=== PATIENT | female | born 1940 | race Caucasian/White ===

== ENCOUNTER 2017-05-04 09:47 | Inpatient (IN) | payer OTHER ==
[~2017-05-04] VITALS: Ht 154.9 cm; Wt 60.8 kg
[~2017-05-04 09:47] MED LIST: ACTOS15 MG PO; ALENDRONATE SOD70 MG PO; AMARYL4 MG PO; CIPRO750 MG PO; DAILY VITAMIN1 EAC8 PO; HYDROCHLOROTHIA25 MG PO; JANUMET 50/11 TABLET PO; LISINOPRIL40 MG PO; PROTONIX40 MG PO; SIMVASTATIN40 MG PO; SYNTHROID75 MCG PO; ZOCOR80 MG PO
[2017-05-04 11:19] LABS: POINT-OF-CARE METER ID UU14100415
[2017-05-04 11:26] LABS: BASOPHIL COUNT 0.1 K/uL (0-0.1); EOSINOPHIL (%) 0.2 % (0-5); HEMATOCRIT 47.2 % (36.0-46.0); IMMATURE GRANULOCYTE (%) 0.4 % (0.0-0.7); IMMATURE GRANULOCYTE COUNT 0.1 K/uL; INSTRUMENT ABS NEUTROPHIL CT 10.6 K/uL; LYMPHOCYTE COUNT 1.8 K/uL (1.0-2.8); MCHC 33.1 G/DL (30.0-36.0); MCV 90.8 FL (83-99); MEAN PLAT.VOLUME 10.8 uM^3 (9.5-12.4); MONOCYTE (%) 6.7 % (3-12); MONOCYTE COUNT 0.9 K/uL (0-0.8); NEUTROPHIL (%) 78.7 % (45-76); NEUTROPHIL COUNT 10.6 K/uL (1.8-6.4); PLATELET COUNT 273 K/uL (156-360); RBC DIS.WIDTH-CV 13.3 % (11.8-14.6); RBC DIS.WIDTH-SD 44.2 % (39-53); WHITE BLOOD COUNT 13.5 K/uL (4.1-10.2)
[2017-05-04 11:40] LABS: CHLORIDE 114 mEq/L (99-109); POTASSIUM 4.1 mEq/L (3.7-5.4); SODIUM 151 mEq/L (136-147)
[2017-05-04 11:42] LABS: GLUCOSE 363 mg/dL (70-99)
[2017-05-04 11:43] LABS: ANION GAP 15 MEQ/L (2-14)
[2017-05-04 11:46] LABS: GFR ESTIMATE (CALCULATED) 51 mL/min/; UREA NITROGEN (BUN) 48 mg/dL (9-23)
[2017-05-04 11:48] LABS: CREATINE KINASE 815 IU/L (1-294)
[2017-05-04 11:51] LABS: ADD MIUA? YES; BILIRUBIN NEGATIVE; BLOOD SMALL; COLOR YELLOW ((YELLOW)); GLUCOSE (STRIP) >=500; KETONES 20; LEUKOCYTES NEGATIVE; NITRITE NEGATIVE; PROTEIN (STRIP) 100; SPECIFIC GRAVITY 1.032 (1.000-1.030)
[2017-05-04 11:54] LABS: TROP-I INTERPRETATION NEGATIVE; TROPONIN-I < 0.01 ng/mL (0.0-0.30)
[2017-05-04 12:09] LABS: BACTERIA 1+ /HPF; EPITHELIAL CELLS RARE /HPF; MUCUS 4+ /LPF; RED BLOOD CELLS 0-5 /HPF (0-5)
[2017-05-04] MEDS ORDERED: ATORVASTATIN CA40 MG PO (12:47)
[2017-05-04 13:19] LABS: POINT-OF-CARE METER ID UU14100415
[2017-05-04 14:35] LABS: CHLORIDE 114 mEq/L (99-109); POTASSIUM 3.6 mEq/L (3.7-5.4); SODIUM 148 mEq/L (136-147)
[2017-05-04 14:37] LABS: GLUCOSE 224 mg/dL (70-99)
[2017-05-04 14:38] LABS: ANION GAP 15 MEQ/L (2-14)
[2017-05-04 14:41] LABS: GFR ESTIMATE (CALCULATED) > 59 mL/min/; UREA NITROGEN (BUN) 43 mg/dL (9-23)
[2017-05-04 14:48] LABS: POINT-OF-CARE METER ID UU13113702
[2017-05-04 17:16] VITALS: BP 165/74
[2017-05-04 18:13] LABS: ANION GAP 12 MEQ/L (2-14); CHLORIDE 111 MEQ/L (99-109); GFR ESTIMATE (CALCULATED) > 59 mL/min/; GLUCOSE 224 mg/dL (70-99); POTASSIUM 3.7 MEQ/L (3.7-5.4); SAMPLE HEMOLYSIS CHECK 0; SAMPLE ICTERIC CHECK 0; SAMPLE LIPEMIA CHECK 0; SODIUM 147 MEQ/L (136-147); UREA NITROGEN (BUN) 41 mg/dL (9-23)
[2017-05-04 23:51] LABS: POINT-OF-CARE METER ID UU13113725
[2017-05-05] VITALS: BP 156/71
[2017-05-05 04:00] VITALS: BP 167/68
[2017-05-05 06:38] LABS: ANION GAP 7 MEQ/L (2-14); CHLORIDE 109 MEQ/L (99-109); GFR ESTIMATE (CALCULATED) > 59 mL/min/; GLUCOSE 164 mg/dL (70-99); POTASSIUM 3.9 MEQ/L (3.7-5.4); SAMPLE HEMOLYSIS CHECK 0; SAMPLE ICTERIC CHECK 0; SAMPLE LIPEMIA CHECK 0; SODIUM 140 MEQ/L (136-147); UREA NITROGEN (BUN) 25 mg/dL (9-23)
[2017-05-05 07:15] VITALS: BP 151/73
[2017-05-05 11:18] VITALS: BP 156/76
[2017-05-05 15:15] VITALS: BP 149/72
[2017-05-05 20:00] VITALS: BP 151/70
[2017-05-06 07:43] LABS: Estimated Average Glucose 232 mg/dL (70-123); HEMOGLOBIN A1c (GLYCOHEMOGLOB) 9.7 % HGB (Below 5.7)
[2017-05-06 08:49] VITALS: BP 170/70
[2017-05-06 14:27] VITALS: BP 119/78
[2017-05-06 17:38] VITALS: BP 164/78
[2017-05-06 19:39] VITALS: BP 160/83
[2017-05-06 23:21] VITALS: BP 149/78
[2017-05-07 03:25] VITALS: BP 144/79
[2017-05-07 06:50] LABS: HDL CHOLESTEROL 21 MG/DL (Desirable>=50); LDL CHOLESTEROL 39 mg/dL (Desirable<100); NON-HDL CHOLESTEROL 68 mg/dL (Desirable<160); TOTAL CHOLESTEROL 89 mg/dL (Desirable<200); TRIGLYCERIDES 145 MG/DL (Normal: <150)
[2017-05-07 07:19] VITALS: BP 169/78
[2017-05-07 11:06] VITALS: BP 165/82
[2017-05-07] MEDS ORDERED: ATORVASTATIN CA40 MG PO (16:04)
[2017-05-07] MEDS ORDERED: LEVEMIR100 UNIT/2 SC (16:04)
[2017-05-07] MEDS ORDERED: MIRTAZAPINE15 MG PO (16:04)
[2017-05-07] MEDS ORDERED: GLIPIZIDE5 MG PO (16:04)
[2017-05-07] MEDS ORDERED: SYNTHROID75 MCG PO (16:04)
[2017-05-07] MEDS ORDERED: AMLODIPINE BESYL5 MG PO (16:04)
[2017-05-07] MEDS ORDERED: ASPIRIN EC325 MG PO (16:08)
[2017-05-07 23:40] VITALS: BP 149/76
[2017-05-08 08:06] VITALS: BP 142/91
[2017-05-08] MEDS ORDERED: ULTRAM50 MG PO (09:59)
== END 2017-05-08 11:48 | DRG 640 ==
LOC: EME 09:47 → EDOF 12:35 → 5EAST 12:35 → ENPENDDIS 05-08 → 5EAST 05-08 11:48
PROVIDERS: Emergency Medicine; Family Medicine; Hospitalist; Internal Medicine; Physician Assistant
DX: E87.0 Hyperosmolality and hypernatremia (principal); E86.0 Dehydration; E11.00 Type 2 diabetes mellitus with hyperosmolarity without nonketotic hyperglycemic-hyperosmolar coma (NKHHC); G93.41 Metabolic encephalopathy; L89.159 Pressure ulcer of sacral region, unspecified stage; M62.82 Rhabdomyolysis; F03.90 Unspecified dementia, unspecified severity, without behavioral disturbance, psychotic disturbance, mood disturbance, and anxiety; N39.0 Urinary tract infection, site not specified; E11.65 Type 2 diabetes mellitus with hyperglycemia; B85.2 Pediculosis, unspecified; E03.9 Hypothyroidism, unspecified; E78.5 Hyperlipidemia, unspecified; F32.9 Major depressive disorder, single episode, unspecified; I10 Essential (primary) hypertension; K21.9 Gastro-esophageal reflux disease without esophagitis; S50.312A Abrasion of left elbow, initial encounter; S30.860A Insect bite (nonvenomous) of lower back and pelvis, initial encounter; W57.XXXA Bitten or stung by nonvenomous insect and other nonvenomous arthropods, initial encounter; Y92.019 Unspecified place in single-family (private) house as the place of occurrence of the external cause; Z79.4 Long term (current) use of insulin; Z79.82 Long term (current) use of aspirin; Z79.84 Long term (current) use of oral hypoglycemic drugs; Z79.899 Other long term (current) drug therapy; Z80.0 Family history of malignant neoplasm of digestive organs; Z82.49 Family history of ischemic heart disease and other diseases of the circulatory system; Z83.3 Family history of diabetes mellitus; Z86.73 Personal history of transient ischemic attack (TIA), and cerebral infarction without residual deficits; Z87.442 Personal history of urinary calculi; Z91.14 Patient's other noncompliance with medication regimen; I69.334 Monoplegia of upper limb following cerebral infarction affecting left non-dominant side
CPT/HCPCS: 70450; 70551; 71010; 73080; 80048; 80048 91; 80061; 81003; 82010; 82550; 82948; 83036; 83930; 84443; 84484; 85025; 93005; 99281; 99285; J0696; J1815; J7030; J7040; J7050

== ENCOUNTER 2017-06-30 12:00 | Emergency (ER) | payer OTHER ==
[~2017-06-30] VITALS: Ht 154.9 cm; Wt 61.9 kg
[~2017-06-30 12:00] MED LIST changes: +AMLODIPINE BESYL5 MG PO; +ASPIRIN EC325 MG PO; +ATORVASTATIN CA40 MG PO; +GLIPIZIDE5 MG PO; +LEVEMIR100 UNIT/2 SC; +MIRTAZAPINE15 MG PO; +ULTRAM50 MG PO
[2017-06-30 12:46] LABS: ADD MIUA? YES; BILIRUBIN NEGATIVE; BLOOD SMALL; COLOR STRAW ((YELLOW)); GLUCOSE (STRIP) >=500; KETONES NEGATIVE; LEUKOCYTES NEGATIVE; NITRITE NEGATIVE; PROTEIN (STRIP) 30
[2017-06-30 12:50] LABS: BACTERIA NONE SEEN /HPF; EPITHELIAL CELLS NONE SEEN /HPF; MUCUS NONE SEEN /LPF; RED BLOOD CELLS 0-5 /HPF (0-5); UCUL ADDED? NO; WHITE BLOOD CELLS 0-5 /HPF (0-5)
[2017-06-30 12:58] LABS: BASOPHIL COUNT 0.1 K/uL (0-0.1); EOSINOPHIL (%) 3.2 % (0-5); EOSINOPHIL COUNT 0.3 K/uL (0-0.3); HEMATOCRIT 43.8 % (36.0-46.0); IMMATURE GRANULOCYTE (%) 0.2 % (0.0-0.7); INSTRUMENT ABS NEUTROPHIL CT 5.7 K/uL; LYMPHOCYTE COUNT 2.8 K/uL (1.0-2.8); MCH 30.2 PG (29.0-34.0); MCHC 33.3 G/DL (30.0-36.0); MCV 90.5 FL (83-99); MEAN PLAT.VOLUME 10.8 uM^3 (9.5-12.4); MONOCYTE (%) 6.6 % (3-12); MONOCYTE COUNT 0.6 K/uL (0-0.8); NEUTROPHIL (%) 60.2 % (45-76); NEUTROPHIL COUNT 5.7 K/uL (1.8-6.4); PLATELET COUNT 267 K/uL (156-360); RBC DIS.WIDTH-SD 42.8 % (39-53); RED BLOOD COUNT 4.84 M/uL (3.80-5.20); WHITE BLOOD COUNT 9.6 K/uL (4.1-10.2)
[2017-06-30 13:09] LABS: CHLORIDE 106 mEq/L (99-109); POTASSIUM 3.3 mEq/L (3.7-5.4); SODIUM 141 mEq/L (136-147)
[2017-06-30 13:10] LABS: POINT-OF-CARE METER ID UU13113747; POINT-OF-CARE USER ID STWBNM
[2017-06-30 13:11] LABS: GLUCOSE 318 mg/dL (70-99)
[2017-06-30 13:12] LABS: ANION GAP 12 MEQ/L (2-14)
[2017-06-30 13:14] LABS: GFR ESTIMATE (CALCULATED) > 59 mL/min/
[2017-06-30 13:15] LABS: UREA NITROGEN (BUN) 15 mg/dL (9-23)
[2017-06-30 13:17] LABS: CREATINE KINASE 32 IU/L (1-294); TOTAL CK 32 IU/L (1-294)
[2017-06-30 13:23] LABS: CK-MB 0.9 ng/mL (0.0-4.9)
[2017-06-30 17:39] VITALS: BP 178/79
== END 2017-06-30 17:58 | disposition home or self-care (01) ==
LOC: EME 12:00
PROVIDERS: Emergency Medicine
PROC: 0T9B70Z Drainage of Bladder with Drainage Device, Via Natural or Artificial Opening (ICD-10-PCS; principal; 2017-06-30)
DX: S80.12XA Contusion of left lower leg, initial encounter (principal); W18.30XA Fall on same level, unspecified, initial encounter; Y92.129 Unspecified place in nursing home as the place of occurrence of the external cause; R29.6 Repeated falls; R33.9 Retention of urine, unspecified; I10 Essential (primary) hypertension; E11.9 Type 2 diabetes mellitus without complications; E78.5 Hyperlipidemia, unspecified; K21.9 Gastro-esophageal reflux disease without esophagitis; E03.9 Hypothyroidism, unspecified; Z87.442 Personal history of urinary calculi; Z90.49 Acquired absence of other specified parts of digestive tract
CPT/HCPCS: 70450; 71010; 72170; 80048; 81003; 82550; 82553; 82948; 85025; 93005; 99281; 99285

== ENCOUNTER 2017-07-09 13:21 | Emergency (ER) | payer OTHER ==
[~2017-07-09] VITALS: Ht 154.9 cm; Wt 63.2 kg
[2017-07-09 15:07] LABS: HEMATOCRIT 48.9 % (36.0-46.0); MCH 29.8 PG (29.0-34.0); MCHC 33.5 G/DL (30.0-36.0); MCV 88.9 FL (83-99); RBC DIS.WIDTH-CV 12.4 % (11.8-14.6); RBC DIS.WIDTH-SD 40.1 % (39-53); WHITE BLOOD COUNT 13.6 K/uL (4.1-10.2)
[2017-07-09 15:26] LABS: TROP-I INTERPRETATION NEGATIVE; TROPONIN-I 0.02 ng/mL (0.0-0.30)
[2017-07-09 15:43] LABS: PLATELET COUNT 131 K/uL (156-360)
[2017-07-09 16:14] LABS: HEMATOLOGY COMMENT 1 SN
[2017-07-09 16:27] LABS: ADD MIUA? YES; BILIRUBIN NEGATIVE; BLOOD SMALL; COLOR YELLOW ((YELLOW)); GLUCOSE (STRIP) >=500; KETONES 20; LEUKOCYTES NEGATIVE; NITRITE NEGATIVE; PROTEIN (STRIP) >=500; SPECIFIC GRAVITY 1.029 (1.000-1.030)
[2017-07-09 16:46] LABS: BACTERIA RARE /HPF; EPITHELIAL CELLS RARE /HPF; MUCUS TRACE /LPF; RED BLOOD CELLS 0-5 /HPF (0-5); UCUL ADDED? NO; WHITE BLOOD CELLS 0-5 /HPF (0-5)
[2017-07-09 17:25] LABS: CHLORIDE 105 mEq/L (99-109); POTASSIUM 3.5 mEq/L (3.7-5.4); SODIUM 142 mEq/L (136-147)
[2017-07-09 17:27] LABS: GLUCOSE 300 mg/dL (70-99)
[2017-07-09 17:28] LABS: ANION GAP 17 MEQ/L (2-14)
[2017-07-09 17:30] LABS: GFR ESTIMATE (CALCULATED) > 59 mL/min/
[2017-07-09 17:31] LABS: UREA NITROGEN (BUN) 18 mg/dL (9-23)
[2017-07-09 17:33] LABS: CREATINE KINASE 460 IU/L (1-294); TOTAL CK 460 IU/L (1-294)
[2017-07-09 17:38] LABS: CK-MB 6.5 ng/mL (0.0-4.9)
[2017-07-09 20:27] VITALS: BP 162/87
[2017-07-10] MEDS ORDERED: PANTOPRAZOLE SO40 MG PO (00:06)
[2017-07-10] MEDS ORDERED: HYDROCHLOROTHIA25 MG PO (00:06)
[2017-07-10] MEDS ORDERED: LISINOPRIL40 MG PO (00:07)
[2017-07-10] MEDS ORDERED: LEVOTHYROXINE75 MCG PO (00:08)
== END 2017-07-09 20:31 | disposition home or self-care (01) ==
LOC: EME 13:21
PROVIDERS: Emergency Medicine
DX: R26.2 Difficulty in walking, not elsewhere classified (principal); W07.XXXA Fall from chair, initial encounter; Y92.009 Unspecified place in unspecified non-institutional (private) residence as the place of occurrence of the external cause; E11.65 Type 2 diabetes mellitus with hyperglycemia; Z79.4 Long term (current) use of insulin; I10 Essential (primary) hypertension; E03.9 Hypothyroidism, unspecified; E78.5 Hyperlipidemia, unspecified; Z79.82 Long term (current) use of aspirin; Z60.2 Problems related to living alone
CPT/HCPCS: 80048; 81003; 82550; 82553; 84484; 85027; 93005; 99281; 99285; J7030

== ENCOUNTER 2017-07-09 22:09 | Inpatient (IN) | payer OTHER ==
[~2017-07-09] VITALS: Ht 154.9 cm; Wt 62.5 kg
[2017-07-09 22:46] LABS: HEMATOCRIT 42.1 % (36.0-46.0); MCH 30.9 PG (29.0-34.0); MCHC 34.4 G/DL (30.0-36.0); MCV 89.6 FL (83-99); MEAN PLAT.VOLUME 10.9 uM^3 (9.5-12.4); RBC DIS.WIDTH-CV 12.6 % (11.8-14.6); RBC DIS.WIDTH-SD 41.5 % (39-53); WHITE BLOOD COUNT 12.1 K/uL (4.1-10.2)
[2017-07-09 22:48] LABS: PLATELET COUNT 270 K/uL (156-360)
[2017-07-09 22:54] LABS: CHLORIDE 104 mEq/L (99-109); POTASSIUM 3.4 mEq/L (3.7-5.4); SODIUM 140 mEq/L (136-147)
[2017-07-09 22:55] LABS: MAGNESIUM 1.8 mg/dL (1.3-2.7)
[2017-07-09 22:57] LABS: GLUCOSE 304 mg/dL (70-99)
[2017-07-09 22:58] LABS: ANION GAP 13 MEQ/L (2-14)
[2017-07-09 23:00] LABS: GFR ESTIMATE (CALCULATED) > 59 mL/min/
[2017-07-09 23:01] LABS: UREA NITROGEN (BUN) 25 mg/dL (9-23)
[2017-07-09 23:03] LABS: CREATINE KINASE 392 IU/L (1-294); TOTAL CK 392 IU/L (1-294)
[2017-07-09 23:04] LABS: TROP-I INTERPRETATION NEGATIVE; TROPONIN-I 0.01 ng/mL (0.0-0.30)
[2017-07-09 23:09] LABS: CK-MB 4.7 ng/mL (0.0-4.9)
[2017-07-10] MEDS ORDERED: HYDROCHLOROTHIA25 MG PO (00:06)
[2017-07-10] MEDS ORDERED: PANTOPRAZOLE SO40 MG PO (00:06)
[2017-07-10] MEDS ORDERED: LISINOPRIL40 MG PO (00:07)
[2017-07-10] MEDS ORDERED: LEVOTHYROXINE75 MCG PO (00:08)
[2017-07-10 05:23] VITALS: BP 189/88
[2017-07-10 05:34] LABS: POINT-OF-CARE METER ID UU13113831
[2017-07-10 06:09] LABS: ALKALINE PHOSPHATASE 123 IU/L (3-129); ANION GAP 10 MEQ/L (2-14); CHLORIDE 108 MEQ/L (99-109); GFR ESTIMATE (CALCULATED) > 59 mL/min/; GLUCOSE 260 mg/dL (70-99); SAMPLE HEMOLYSIS CHECK 0; SAMPLE ICTERIC CHECK 0; SAMPLE LIPEMIA CHECK 0; SODIUM 142 MEQ/L (136-147); TOTAL BILIRUBIN 0.8 MG/DL (0.0-1.0); UREA NITROGEN (BUN) 21 mg/dL (9-23)
[2017-07-10 06:17] LABS: HDL CHOLESTEROL 29 MG/DL (Desirable>=50); LDL CHOLESTEROL 48 mg/dL (Desirable<100); MAGNESIUM 1.7 mg/dl (1.3-2.7); NON-HDL CHOLESTEROL 78 mg/dL (Desirable<160); TOTAL CHOLESTEROL 107 mg/dL (Desirable<200); TRIGLYCERIDES 149 MG/DL (Normal: <150)
[2017-07-10 06:45] LABS: Estimated Average Glucose 252 mg/dL (70-123); HEMOGLOBIN A1c (GLYCOHEMOGLOB) 10.4 % HGB (Below 5.7)
[2017-07-10 09:01] VITALS: BP 164/68
[2017-07-10 13:00] LABS: POINT-OF-CARE METER ID UU14162513
[2017-07-10 13:35] VITALS: BP 162/78
[2017-07-10 16:03] VITALS: BP 165/74
[2017-07-10 20:00] VITALS: BP 162/72
[2017-07-10 23:22] VITALS: BP 153/67
[2017-07-11 04:40] VITALS: BP 161/72
[2017-07-11 06:43] LABS: ALKALINE PHOSPHATASE 113 IU/L (3-129); ANION GAP 9 MEQ/L (2-14); CHLORIDE 105 MEQ/L (99-109); GFR ESTIMATE (CALCULATED) > 59 mL/min/; GLUCOSE 231 mg/dL (70-99); POTASSIUM 3.1 MEQ/L (3.7-5.4); SAMPLE HEMOLYSIS CHECK 0; SAMPLE ICTERIC CHECK 0; SAMPLE LIPEMIA CHECK 0; SODIUM 140 MEQ/L (136-147); TOTAL BILIRUBIN 0.8 MG/DL (0.0-1.0); UREA NITROGEN (BUN) 18 mg/dL (9-23)
[2017-07-11 07:35] VITALS: BP 149/66
[2017-07-11 12:00] VITALS: BP 167/74
[2017-07-11 12:47] LABS: POINT-OF-CARE METER ID UU13113831
[2017-07-11 16:34] VITALS: BP 149/70
[2017-07-11 17:10] LABS: POINT-OF-CARE METER ID UU14162513
[2017-07-11 19:48] VITALS: BP 169/81
[2017-07-11 21:35] LABS: POINT-OF-CARE METER ID UU14162513
[2017-07-11 23:23] VITALS: BP 167/73
[2017-07-12 04:15] VITALS: BP 161/77
[2017-07-12 08:21] LABS: POINT-OF-CARE METER ID UU14162513
[2017-07-12 08:49] VITALS: BP 165/75
[2017-07-12] MEDS ORDERED: AMLODIPINE BESY10 MG PO (10:39)
[2017-07-12] MEDS ORDERED: ERGOCALCIF50000 UNIT PO (10:41)
[2017-07-12] MEDS ORDERED: LEVEMIR100 UNIT/2 SC (10:41)
[2017-07-12 11:20] LABS: ANION GAP 10 MEQ/L (2-14); CHLORIDE 106 MEQ/L (99-109); GFR ESTIMATE (CALCULATED) > 59 mL/min/; GLUCOSE 321 mg/dL (70-99); SAMPLE HEMOLYSIS CHECK 0; SAMPLE ICTERIC CHECK 0; SAMPLE LIPEMIA CHECK 0; SODIUM 138 MEQ/L (136-147); UREA NITROGEN (BUN) 15 mg/dL (9-23)
[2017-07-12 11:21] LABS: POTASSIUM 4.4 MEQ/L (3.7-5.4)
[2017-07-12 11:50] VITALS: BP 146/68
[2017-07-12 15:56] VITALS: BP 141/66
== END 2017-07-12 16:44 | DRG 551 ==
LOC: EME → EDBD 22:09 → EDOF 07-10 01:33 → 5WEST 07-10 01:33 → EDOF 07-10 01:33 → ENRESERV 07-10 01:34 → 5WEST 07-10 04:09 → ENRESERV 07-10 10:40 → 5WEST 07-11 07:10 → ENPENDDIS 07-12 16:00 → 5WEST 07-12 16:44
PROVIDERS: Emergency Medicine; Internal Medicine; Physician Assistant Medical
DX: S32.110A Nondisplaced Zone I fracture of sacrum, initial encounter for closed fracture (principal); S32.592A Other specified fracture of left pubis, initial encounter for closed fracture; G93.41 Metabolic encephalopathy; I16.0 Hypertensive urgency; W19.XXXA Unspecified fall, initial encounter; M81.0 Age-related osteoporosis without current pathological fracture; E11.65 Type 2 diabetes mellitus with hyperglycemia; E87.6 Hypokalemia; R29.6 Repeated falls; E78.5 Hyperlipidemia, unspecified; Y92.009 Unspecified place in unspecified non-institutional (private) residence as the place of occurrence of the external cause; Z86.73 Personal history of transient ischemic attack (TIA), and cerebral infarction without residual deficits; E03.9 Hypothyroidism, unspecified; E55.9 Vitamin D deficiency, unspecified; Z79.4 Long term (current) use of insulin; Z23 Encounter for immunization; I10 Essential (primary) hypertension
CPT/HCPCS: 70450; 70551; 72192; 73502; 80048; 80048 91; 80053; 80061; 81003; 82306; 82550; 82550 91; 82553; 82948; 83036; 83735; 84100; 84484; 85027; 90686; 93005; 93306; 93880; 97530 GP; 99281; 99285; G8978 GP CM; G8979 GP CK; G8980 GP CM; G8987 GO CL; G8987 GO CM; G8988 GO CL; G8988 GO CM; G8989 GO CM; J0360; J1644; J1815; J3480; J7030